=== PATIENT | female | born 1950 | race Caucasian/White ===

== ENCOUNTER → 2023-09-14 09:29 | Outpatient (REF) | payer MEDICARE, OTHER, SELFPAY ==
[2023-09-14 12:23] LABS: % Basophils 0.6 % (0-2); % Eosinophils 2.6 % (0-6); % Immature Granulocytes 0.3 % (0-0.5); % Lymphocytes 22.4 % (20.5-51.1); % Monocytes 6.1 % (1.7-9.3); Absolute Basophils 0.1 10^3/uL (0-0.2); Absolute Eosinophils 0.2 10^3/uL (0-0.7); Absolute Lymphocytes 2.1 10^3/uL (1.2-3.4); Absolute Monocytes 0.6 10^3/uL (0.1-0.6); Absolute Neutrophils 6.3 10^3/uL (1.4-6.5); Hematocrit 42.3 % (37.0-47.0); Hemoglobin 14.2 g/dL (12.0-16.0); Mean Corp Hgb Conc. 33.6 g/dL (33.0-37.0); Mean Corpuscular Hgb 29.3 pg (27.0-31.0); Mean Corpuscular Volume 87.4 fL (81.0-99.0); Mean Platelet Volume 10.6 fL (7.4-10.4); Nucleated Red Blood Cells % 0 %; Platelet Count 315 10^3/uL (130-400); Red Blood Cell Count 4.84 10^6/uL (4.20-5.40); Red Cell Dist. Width 14.2 % (11.5-14.5); White Blood Cell Count 9.3 10^3/uL (4.8-10.8)
[2023-09-14 12:33] LABS: ALT (SGPT) 25 U/L (0-35); AST (SGOT) 25 U/L (14-36); Albumin 4.4 g/dl (3.5-5.0); Alkaline Phosphatase 94 U/L (38-126); Blood Urea Nitrogen 20 mg/dl (7-17); Calcium 9.7 mg/dl (8.4-10.2); Carbon Dioxide 28 mmol/L (22-30); Chloride 104 mmol/L (98-107); Glucose 101 mg/dl (70-99); HDL Cholesterol 45 mg/dl; LDL Cholesterol, Calculated 91 mg/dl; Potassium 4.1 mmol/L (3.5-5.1); Sodium 141 mmol/L (135-145); Total Bilirubin 0.6 mg/dl (0.2-1.3); Total Cholesterol 162 mg/dl (50-199); Total Protein 6.9 g/dl (6.3-8.2); Triglyceride 134 mg/dl (10-149); Very Low Density Lipoprotein 26 mg/dl (0-30); eGFR > 60.00
[2023-09-14 13:01] LABS: TSH Reflex To Free T4 3.04 uIU/ml (0.47-4.68)
== END ==
LOC: HWLAB 09:29
PROVIDERS: ATTENDING PHYSICIAN Family Medicine
DX: I10 Essential (primary) hypertension (principal); E78.00 Pure hypercholesterolemia, unspecified; E03.9 Hypothyroidism, unspecified; G45.9 Transient cerebral ischemic attack, unspecified; R79.9 Abnormal finding of blood chemistry, unspecified
CPT/HCPCS: 36415; 80053; 80061; 84443; 85025

== ENCOUNTER → 2023-10-25 12:46 | Outpatient (REF) | payer MEDICARE, OTHER, SELFPAY | LOC: DHVS 12:46 | PROVIDERS: ATTENDING PHYSICIAN Surgery Vascular Surgery; FAMILY PHYSICIAN Family Medicine | DX: I65.23 Occlusion and stenosis of bilateral carotid arteries (principal) | CPT/HCPCS: 93880 ==

== ENCOUNTER → 2023-11-24 10:58 | Outpatient (REF) | payer MEDICARE, OTHER, SELFPAY ==
[2023-11-24 16:21] LABS: IgA 123 mg/dl (70-400)
[2023-11-28 01:42] LABS: Endomysial IgA Antibody Titer <1:10 (<1:10)
== END ==
LOC: HWLAB 10:58
PROVIDERS: ATTENDING PHYSICIAN Internal Medicine; FAMILY PHYSICIAN Family Medicine
DX: R19.5 Other fecal abnormalities (principal)
CPT/HCPCS: 36415; 82784; 83516; 86231

== ENCOUNTER → 2023-12-07 12:22 | Outpatient (REF) | payer MEDICARE, OTHER, SELFPAY | LOC: HWLAB 12:22 | PROVIDERS: ATTENDING PHYSICIAN Internal Medicine | DX: R19.5 Other fecal abnormalities (principal) | CPT/HCPCS: 82653; 83993; 87045; 87046; 87077; 87324; 87427; 87449 ==

== ENCOUNTER → 2024-04-19 11:48 | Outpatient (REF) | payer MEDICARE, OTHER, SELFPAY ==
[2024-04-19 16:12] LABS: ALT (SGPT) 25 U/L (0-35); AST (SGOT) 25 U/L (14-36); Albumin 4.3 g/dl (3.5-5.0); Alkaline Phosphatase 89 U/L (38-126); Blood Urea Nitrogen 17 mg/dl (7-17); Calcium 9.4 mg/dl (8.4-10.2); Carbon Dioxide 31 mmol/L (22-30); Chloride 100 mmol/L (98-107); Glucose 96 mg/dl (70-99); HDL Cholesterol 42 mg/dl; LDL Cholesterol, Calculated 86 mg/dl; Potassium 3.9 mmol/L (3.5-5.1); Sodium 140 mmol/L (135-145); Total Bilirubin 0.7 mg/dl (0.2-1.3); Total Cholesterol 154 mg/dl (50-199); Total Protein 6.9 g/dl (6.3-8.2); Triglyceride 130 mg/dl (10-149); Very Low Density Lipoprotein 26 mg/dl (0-30); eGFR > 60.00
[2024-04-19 16:41] LABS: TSH Reflex To Free T4 1.01 uIU/ml (0.47-4.68)
== END ==
LOC: HWLAB 11:48
PROVIDERS: ATTENDING PHYSICIAN Nurse Practitioner Family; FAMILY PHYSICIAN Family Medicine
DX: E78.00 Pure hypercholesterolemia, unspecified (principal); E03.9 Hypothyroidism, unspecified; Z00.00 Encounter for general adult medical examination without abnormal findings
CPT/HCPCS: 36415; 80053; 80061; 84443

== ENCOUNTER → 2024-06-04 15:13 | Outpatient (REF) | payer MEDICARE, OTHER, SELFPAY | LOC: HWRAD 15:13 | PROVIDERS: ATTENDING PHYSICIAN Family Medicine; FAMILY PHYSICIAN Family Medicine | DX: M79.672 Pain in left foot (principal) | CPT/HCPCS: 73630 ==

== ENCOUNTER → 2024-06-29 10:44 | Outpatient (REF) | payer MEDICARE, OTHER, SELFPAY | LOC: HWWDC 10:44 | PROVIDERS: ATTENDING PHYSICIAN Nurse Practitioner Family; FAMILY PHYSICIAN Family Medicine | DX: Z12.31 Encounter for screening mammogram for malignant neoplasm of breast (principal) | CPT/HCPCS: 77063; 77067 ==

== ENCOUNTER → 2024-09-07 11:53 | Outpatient (REF) | payer MEDICARE, OTHER, SELFPAY | LOC: HWRAD 11:53 | PROVIDERS: ATTENDING PHYSICIAN Family Medicine | DX: G45.9 Transient cerebral ischemic attack, unspecified (principal); M16.12 Unilateral primary osteoarthritis, left hip | CPT/HCPCS: 73502 ==

== ENCOUNTER 2024-10-03 18:28 | Emergency (ER) | payer MEDICARE, OTHER, SELFPAY ==
[2024-10-03 18:30] VITALS: BP 181/78
[2024-10-03 21:23] VITALS: BP 148/69
[2024-10-03 22:00] VITALS: BP 129/62
[2024-10-03] MEDS: TORADOL 30 MG IM (22:34)
[2024-10-03] MEDS: DELTASONE 50 MG PO (22:34)
[2024-10-03] MEDS: VALIUM INJECTION 5 MG IM (22:35)
[2024-10-03 23:00] VITALS: BP 156/73
--- NOTE | 2024-10-03 23:21 | ED.GENMED ---
History of Present Illness
General
Chief Complaint: Back Pain
Source: patient, previous radiology exam (Neck MRA November 2021, CTA of the neck January 2022 both showing moderate cervical DJD with disc narrowing C5-C6 and C6-C7 with endplate sclerosis and spur formation most prominent at C5-C6. Straightening of
the normal lordotic curve consistent with muscle spasm.) and previous hospital records (Previous ED visit for somewhat similar complaint 2015. Pain resolved with IM dose of Valium. Outpatient PCP visit November 2023 for similar complaint received a
Medrol Dosepak at that time.)
Exam Limitations: none
Time Seen by Provider: 10/03/24 22:07
Nursing documentation reviewed up to this point in time: agreed with
History of Present Illness
History of Present Illness:
This is a 74-year-old woman with history of chronic neck and low back pain, history of lumbar spinal stenosis, history of cervical DJD. Remote history of lumbar laminectomy 1992 and then lumbar spinal surgery with hardware placement 2018. She does
have history of intermittent posterior neck pain along with somewhat chronic intermittent tingling of bilateral hands and notes previous visits with pain management with discussion of potentially eventually requiring cervical spine surgery. She has
remote history of epidural steroid injection perhaps 10 years ago without relief of pain at that time.
She presents with 3-day history of posterior neck pain, stiffness, worse with rotation of her head, mildly temporized with Tylenol. She denies injury nor fall, no fever nor chills, no sore throat nor dysphagia. Posterior neck pain occasionally
radiates to the back of her head. She denies dizziness nor lightheadedness. She denies weakness nor numbness but has had intermittent tingling of bilateral hands as above. Stable and unchanged.
No chest pain or cough no shortness of breath.
She has history of carotid artery disease status post left carotid endarterectomy and is chronically maintained on Plavix. Thus she avoids NSAIDs.
Prior records reviewed. PCP visit November 2023 with similar posterior neck pain. Treated with a Medrol Dosepak with apparent relief. At that time discussed referral to pain management/orthospine if Medrol Dosepak had not been effective.
Previous ED visit 2016 for somewhat similar posterior neck pain. Received an IM dose of Valium with relief.
Past History
Past History
ED Past Medical History: Arrthythmia (PVC's), HTN, Hypercholesterolemia, Other (TIA, discogenic back disease, ) and Other (Diverticulitis with abscess, IBS, Uterine fibroids, Graves disease)
ED Past Surgical History: Gynecological (Hysterectomy, tubal ligation), Orthopedic (Laminectomy ), Urological (Right partial Nephrectomy) and Other ( left carotid endarterectomy)
Social History
Tobacco: Non-smoker
Alcohol: None
Personal:
Living: with family
Family History
Family History: Negative Diabetes, Hypertension, Early CAD, Asthma or Cancer
Phy Exam
Physical Exam
Physical Exam:
GENERAL: Alert , in no apparent distress
EYE: pupils equal and reactive. anicteric
NECK: Supple, no midline bony tenderness. Moderate tenderness paracervical musculature with moderately restricted cervical range of motion all antonio. No meningismus, no significant adenopathy.
ENT: posterior pharynx is clear, oral mucosa is moist. No rhinorrhea.
CARDIAC: Regular rate and rhythm. no murmur. No chest wall tenderness.
LUNGS: Clear breath sounds bilaterally, no acute respiratory distress, no wheezes/rales/rhonchi
ABDOMEN: Soft, nondistended, without focal tenderness, no r/g, no cvat. normoactive BS.
NEUROLOGICAL: Alert and oriented x3, no focal neuro deficits. Motor strength is 5/5 bilaterally. Gross sensation is intact. Hand grasp full and equal bilaterally.
SKIN: Warm and dry, normal color, skin intact. No rash.
MUSCULOSKELETAL: No C/C/E. peripheral pulses are full and equal b/l. No palpable tenderness.
PSYCH: Normal and appropriate interaction.
Course
Orders/Labs/Results
Orders:
Orders
10/03/24 22:29
Ketorolac [Toradol] 30 mg IM NOW STA
Prednisone [Deltasone] 50 mg PO NOW STA
diazePAM [Valium Injection] 5 mg IM NOW STA
10/03/24 23:37
Cervical Collar- Treatment ONCE
Collar Type: Soft Cervical Collar
Vital Signs
Initial and Last Documented VS:
Initial Vital Signs
Temp Pulse Resp BP Pulse Ox
98.0 F 64 16 181/78 97
10/03/24 18:30 10/03/24 18:30 10/03/24 18:30 10/03/24 18:30 10/03/24 18:30
Last Documented Vital Signs
Temp Pulse Resp BP Pulse Ox
98.0 F 63 17 155/66 96
10/03/24 18:30 10/03/24 23:56 10/03/24 23:56 10/03/24 23:44 10/03/24 23:50
MDM/Problems Addressed
Differential Diagnosis Includes:
Concern for exacerbation of cervical disc disease, torticollis.
No history of trauma nor fall, no history of fever, no recent surgical procedures nor injections thus infectious process is unlikely.
She does note intermittent tingling of bilateral hands but no focal neurodeficits. TIA/CVA is unlikely.
Exam notable for moderately restricted cervical range of motion related to pain. Most consistent with musculoskeletal pain.
Will trial a one-time dose of IM Toradol as well as IM Valium for muscle spasm and will give an oral dose of prednisone.
At this point no indication for imaging.
Vital signs reassuring, within normal limits.
Chronic conditions affecting care: HTN and Neurological disorder (TIA, carotid artery disease chronically maintained on Plavix)
*Pulse Oximetry
SaO2: 95
Oxygen Mode of Delivery: Room air
Patient hypoxic: no
*Critical Care Note
Total Time (30-74mins, 75-104mins- exclusive of procedures): Not Applicable
Update Note
Update Note:
23:40
Patient reassessed. Feeling markedly improved after medications. Continues with moderately restricted cervical range of motion but pain has markedly improved.
Vital signs within normal limits. She remains afebrile.
Continues with no focal neurodeficits.
Will trial soft cervical collar.
Will plan for discharge to home with prompt follow-up with PCP.
Patient does have initial visit with Dr. Polo the end of October.
Will place on prednisone taper, short course of Flexeril to take at bedtime. Recommend continuing Tylenol as needed for pain.
ED Attending Note
-
Portions of this chart may have been created with voice recognition software.� Occasional wrong word or��sound alike� substitutions may have occurred due to the inherent limitations of voice recognition software.
Discharge Plan
Departure
Patient Disposition: Home (Routine Discharge)
Date of Disposition: 10/04/24
Time of Disposition: 00:10
Patient with high blood pressure during this ER visit?: No
Condition: Good
Discharge Problem:
Acute on chronic neck pain , Degenerative joint disease of cervical spine
Instructions: Neck pain, Degenerative disc disease
Prescriptions:
New
cyclobenzaprine 10 mg tablet
10 mg PO HSPRN PRN (Reason: muscle spasm) Qty: 12 0RF
prednisone 10 mg Tablet
See Rx Instructions .ROUTE .COMPLEX Qty: 30 0RF
Rx Instructions:
Take By Mouth:
40 mg daily x3 days, 30 mg daily x3 days,
20 mg daily x3 days, 10 mg daily x3 days.
No Action
Probiotic 1 EACH capsule
1 ea PO DAILY
multivitamin Tablet
1 tab PO DAILY
atorvastatin 10 mg Tablet
10 mg PO DAILY
clopidogrel [Plavix] 75 mg Tablet
75 mg PO DAILY
amlodipine 5 mg Tablet
5 mg PO DAILY
levothyroxine 75 mcg Tablet
75 mcg PO DAILY
losartan-hydrochlorothiazide 100-12.5 mg Tablet
1 tab PO DAILY
cholecalciferol (vitamin D3) [Vitamin D3] 50 mcg (2,000 unit) Capsule
50 mcg PO DAILY
coQ10 (ubiquinol) 100 mg Capsule
100 mg PO DAILY
aspirin 81 mg Capsule
81 mg PO DAILY
famotidine [Pepcid] 20 mg Tablet
20 mg PO DAILY
atenolol 50 MG tablet
100 mg PO DAILY
amoxicillin-pot clavulanate 875-125 mg tablet
1 tab PO BID Qty: 19 0RF
Referrals:
Len Mckinney MD [Family Provider, Family Practice] - Follow up in 2-3 days
Interventions
Interventions:
*Risk Screen - Suicide Last Done: 10/03/24 18:34
*General Assessment Last Done: 10/03/24 18:34
*Neglect/Abuse Screening Last Done: 10/03/24 18:34
*ED- Fall Risk Assessment Last Done: 10/03/24 21:20
*ED COVID-19 Vaccine History Last Done: 10/03/24 21:20
ED-Musculoskeletal Assessment Last Done: 10/03/24 21:20
Discharge Date and Time
Print Language: ITALIAN
[2024-10-03 23:44] VITALS: BP 155/66
== END 2024-10-04 00:27 | disposition home or self-care (01) ==
LOC: EMR 18:28
PROVIDERS: EMERGENCY PHYSICIAN Emergency Medicine; FAMILY PHYSICIAN Family Medicine
DX: M47.812 Spondylosis without myelopathy or radiculopathy, cervical region (principal); M54.2 Cervicalgia; I49.3 Ventricular premature depolarization; E78.00 Pure hypercholesterolemia, unspecified; I10 Essential (primary) hypertension; K58.9 Irritable bowel syndrome, unspecified; Z79.02 Long term (current) use of antithrombotics/antiplatelets; Z82.49 Family history of ischemic heart disease and other diseases of the circulatory system; Z86.73 Personal history of transient ischemic attack (TIA), and cerebral infarction without residual deficits; Z90.5 Acquired absence of kidney; Z90.710 Acquired absence of both cervix and uterus
CPT/HCPCS: 99283; 96372

== ENCOUNTER → 2024-10-16 10:40 | Outpatient (REF) | payer MEDICARE, OTHER, SELFPAY | LOC: RAD 10:40 | PROVIDERS: ATTENDING PHYSICIAN Surgery Vascular Surgery; FAMILY PHYSICIAN Family Medicine | DX: I65.23 Occlusion and stenosis of bilateral carotid arteries (principal) | CPT/HCPCS: 93880 ==

== ENCOUNTER → 2025-01-16 11:35 | Outpatient (REF) | payer MEDICARE, OTHER, SELFPAY ==
[2025-01-16 16:06] LABS: Hematocrit 43.5 % (37.0-47.0); Hemoglobin 14.2 g/dL (12.0-16.0); Mean Corp Hgb Conc. 32.6 g/dL (33.0-37.0); Mean Corpuscular Volume 89.3 fL (81.0-99.0); Nucleated Red Blood Cells % 0 %; Platelet Count 286 10^3/uL (130-400); Red Cell Dist. Width 13.7 % (11.5-14.5)
[2025-01-16 18:14] LABS: ALT (SGPT) 23 U/L (0-35); AST (SGOT) 22 U/L (14-36); Albumin 4.3 g/dl (3.5-5.0); Alkaline Phosphatase 90 U/L (38-126); Blood Urea Nitrogen 13 mg/dl (7-17); Calcium 9.4 mg/dl (8.4-10.2); Carbon Dioxide 29 mmol/L (22-30); Chloride 106 mmol/L (98-107); Glucose 89 mg/dl (70-99); Potassium 4.0 mmol/L (3.5-5.1); Sodium 142 mmol/L (135-145); Total Protein 6.7 g/dl (6.3-8.2); eGFR > 60.00
== END ==
LOC: HWLAB 11:35
PROVIDERS: ATTENDING PHYSICIAN Family Medicine
DX: I10 Essential (primary) hypertension (principal); E78.00 Pure hypercholesterolemia, unspecified; G45.9 Transient cerebral ischemic attack, unspecified
CPT/HCPCS: 36415; 80053; 84443; 85025

== ENCOUNTER → 2025-01-30 12:08 | Outpatient (REF) | payer MEDICARE, OTHER, SELFPAY | LOC: PAVMRI 12:08 | PROVIDERS: ATTENDING PHYSICIAN Physician Assistant Surgical | DX: M54.12 Radiculopathy, cervical region (principal); M54.2 Cervicalgia; R26.9 Unspecified abnormalities of gait and mobility | CPT/HCPCS: 72141 ==